=== PATIENT | female | born 1990 | race Two or more races ===

== ENCOUNTER 2024-02-11 19:53 | Observation (INO) | payer MEDICAID, SELFPAY ==
[2024-02-11 19:53] VITALS: BP 114/58; PULSE 57; RESP 18; RESP 98; TEMP 36.9
[2024-02-11 20:04] VITALS: BP 114/58; PULSE 57
[2024-02-11 20:12] VITALS: BMI 34.7
== END 2024-02-11 23:52 | disposition home or self-care (01) ==
PROVIDERS: Admitting Provider Specialist; Visit Provider Specialist
DX: Z3A.38 38 weeks gestation of pregnancy (principal); R10.2 Pelvic and perineal pain; M54.50 Low back pain, unspecified; R35.0 Frequency of micturition; O26.893 Other specified pregnancy related conditions, third trimester
CPT/HCPCS: 59025; 59899

== ENCOUNTER 2024-02-12 03:52 | Inpatient (IN) | payer MEDICAID, SELFPAY ==
[2024-02-12] VITALS (27 sets, daily range): BP systolic 100–122; BP diastolic 53–97; PULSE 50–73; RESP 16–98; TEMP 36.4–37.2; O2SAT 91–100; BMI 34.4
[2024-02-12 06:12] LABS: Basophils % (Auto) 0 % (0-2.5); Eosinophils % (Auto) 0 % (0-10); Hematocrit 42.2 % (36.0-46.0); Hemoglobin 14.1 g/dL (12.0-16.0); Immature Granulocytes % (Auto) 0 % (0-0); Immature Granulocytes Auto 0.04 Thou/mm3 (0.00-0.00); Lymphocytes # (Auto) 3.1 Thou/mm3 (1.0-4.8); Lymphocytes % (Auto) 30 % (10-50); Mean Corpuscular HGB Conc 33.4 g/dl (31.0-37.0); Mean Corpuscular Hemoglobin 26.6 pg (25.0-35.0); Mean Corpuscular Volume 80 fL (80-100); Monocytes # (Auto) 0.7 Thou/mm3 (0.0-0.8); Monocytes % (Auto) 7 % (0-12); Neutrophils # (Auto) 6.5 Thou/mm3 (1.8-7.7); Neutrophils % (Auto) 62 % (37-80); Nucleated Red Blood Cell % 0 /100 WBC (0); Platelet Count 180 Thou/mm3 (140-440); RDW Standard Deviation 43.2 fL (36.4-46.3); White Blood Count 10.5 Thou/mm3 (3.6-11.0)
[2024-02-12 06:55] LABS: Syphilis Nonreactive (Nonreactive)
--- NOTE | 2024-02-12 06:55 | PD.LDDS ---
DS: Providers Provider Date of admission: 02/12/24 05:40 Primary care physician: Physician No Primary/Family Admitting Provider: Stephon Barrett MD Attending Provider on Admission: Stephon Barrett MD Attending Provider on DC: Stephon Barrett MD Discharging Provider: Stephon Barrett MD DS: Diagnosis Problem List Completed Was Problem List Reviewed/Reconciled?: Yes Summary/Hosp Course Time Spent with Patient Time attestation: Total time spent providing and/or coordinating discharge services: Exam Vital Signs Temp Pulse Resp BP Pulse Ox 98 F 58 L 17 113/54 L 98 02/12/24 04:05 02/12/24 06:47 02/12/24 04:05 02/12/24 06:47 02/12/24 04:40 Discharge Plan Plan Patient Disposition: HOME (Self Care) Patient condition on transfer: Stable Prescriptions/Referrals Prescriptions/Med Rec: New ibuprofen 600 mg tablet 600 mg PO Q6H PRN (Reason: pain) Qty: 30 0RF Continued pawliggm-[id number]-[id number] 1 mg Tablet 1 tab PO DAILY Discontinued ferrous sulfate 325 mg (65 mg iron) tablet 325 mg PO QDAY Patient Comments: Take 1 tablet by mouth once a day Referrals: No Primary/Family,Physician [Primary Care Provider] - Patient/Caregiver Discharge Instructions Discharge Activity: activity as tolerated Other Discharge Activity Instructions:: Follow up office 6 weeks. Education Materials: After a Vaginal , Breast Care After , : Caring for Yourself Print Language: Bel[place]ian Stand Alone Forms: [facility] Award Info., Patient Portal Info Letter Discharge Order Discharge Orders: Discharge (Routine); Ordered 02/13/24 Ordered By: Stephon Barrett Planned Discharge Date 02/13/24
[2024-02-12] MEDS: OXYTOCIN in NS 20 units 20 UNIT/1,000 ML BAG 125 UNIT IV (06:59)
[2024-02-12] MEDS: RINGERS LACTATED 1000 ML 1,000 ML 100 ML IV (07:00)
--- NOTE | 2024-02-12 07:02 | PD.LDDELS ---
Data ([facility]) Data Hx Section: No : 3 Para: 2 Term: 2 : 0 : 0 Delivery Data ([place]) Labor Data ROM Date: 02/12/24 ROM Time: 06:29 Rupture Type: SROM Amniotic Fluid: Clear Delivery Data Labor Onset Stage 1 Date: 02/12/24 Labor Onset Stage 1 Time: 03:00 Labor Onset Stage 2 Date: 02/12/24 Labor Onset Stage 2 Time: 06:29 Delivery Date: 02/12/24 Delivery Time: 06:39 Placenta Delivery Date: 02/12/24 Placenta Delivery Time: 06:47 Delivered by: Stephon Barrett Delivery nurse: Maida Daugherty Other staff at delivery: Nurse Other staff at delivery: Nurse Other staff at delivery: Mai Melgar Other staff at delivery: Maddie Giron Delivery Method Delivery: Vaginal Delivery Type: Spontaneous Presentation: Vertex Anesthesia Type Primary Anesthesia: None Placenta Placenta Delivery: Spontaneous Cord Sample: Cord Blood Obtained Umbilical Cord Umbilical Vessels: 3 Data ([place]) Data Infant Gender: Male Infant Weight Grams: 3225 1 Minute Total: 9 5 Minute Total: 9
[2024-02-12] MEDS: BENZO/LANO/ALOE (Dermoplast) 60 GM CAN 1 SPRAY TOP (07:12)
[2024-02-12] MEDS: IBUPROFEN TAB 400 MG TABLET 800 MG PO ×2 (07:12→16:40)
--- NOTE | 2024-02-12 07:51 | ESHP_ITS ---
RE: ABBEY BRUNO : 1990 DATE OF ADMISSION: 02/12/2024 HISTORY OF PRESENT ILLNESS: This is a 33-year-old 3, para 2 with intrauterine at term weeks who presents for contractions and is noted to be in active labor. She progressed rapidly and delivered a viable male infant via normal vaginal delivery with intact perineum with Apgars 9 and 9, weight 3225 grams. , she reported contractions immediately prior to presenting to labor and delivery. She ruptured just prior to delivery. She reported no complications in the past few days. PAST MEDICAL HISTORY: Gallstones. PAST SURGICAL HISTORY: Cholecystitis. OBSTETRIC HISTORY: Two previous full-term normal vaginal deliveries. ALLERGIES: NO KNOWN DRUG ALLERGIES. MEDICATIONS: multivitamin 1 tablet p.o. daily. FAMILY HISTORY: See record. REVIEW OF SYSTEMS: She denies any chest pain, palpitations, cough, fever, or shortness of breath or lower extremity pain. PHYSICAL EXAMINATION: VITAL SIGNS: Blood pressure 113/54 mmHg, heart rate 58 bpm, respirations 18, temperature 98.2 degrees Fahrenheit. HEENT: Oropharynx and sclerae are clear. LUNGS: Clear to auscultation bilaterally. HEART: Regular rate and rhythm. ABDOMEN: Fundus is firm below the umbilicus. Bleeding is scant. PELVIC: Perineum is intact. EXTREMITIES: Nontender. SKIN: No gross rashes or lesions. NEUROLOGIC: No focal deficits. ASSESSMENT: day #0 status post spontaneous vaginal delivery. PLAN: care. support. Possible discharge home tomorrow. DT: 07:04:48 TT: 07:51:00 Ref: [id number] - TID: [id number] MTDD
[2024-02-12 14:11] LABS: Basophils % (Auto) 0 % (0-2.5); Eosinophils % (Auto) 0 % (0-10); Hematocrit 37.7 % (36.0-46.0); Hemoglobin 12.7 g/dL (12.0-16.0); Immature Granulocytes % (Auto) 0 % (0-0); Immature Granulocytes Auto 0.04 Thou/mm3 (0.00-0.00); Lymphocytes # (Auto) 1.7 Thou/mm3 (1.0-4.8); Lymphocytes % (Auto) 15 % (10-50); Mean Corpuscular HGB Conc 33.7 g/dl (31.0-37.0); Mean Corpuscular Hemoglobin 26.9 pg (25.0-35.0); Mean Corpuscular Volume 80 fL (80-100); Monocytes # (Auto) 0.7 Thou/mm3 (0.0-0.8); Monocytes % (Auto) 6 % (0-12); Neutrophils # (Auto) 9.4 Thou/mm3 (1.8-7.7); Neutrophils % (Auto) 79 % (37-80); Nucleated Red Blood Cell % 0 /100 WBC (0); Platelet Count 161 Thou/mm3 (140-440); RDW Standard Deviation 43.3 fL (36.4-46.3); Red Blood Count 4.72 Miln/mm3 (4.00-5.20); White Blood Count 11.8 Thou/mm3 (3.6-11.0)
[2024-02-13 00:05] VITALS: BP 107/64; PULSE 57; RESP 16; TEMP 36.9; O2SAT 98
[2024-02-13 05:19] VITALS: BP 108/65; PULSE 52; RESP 16; TEMP 36.6; O2SAT 98
[2024-02-13 07:48] VITALS: BP 102/67; PULSE 94; RESP 16; TEMP 36.6; O2SAT 98
--- NOTE | 2024-02-13 08:15 | ESPR_ITS ---
RE: KEKEGEOVANYABBEY : 1990 DATE OF SERVICE: 02/13/2024 SUBJECTIVE: day #1, the patient denies any problems or complaints. OBJECTIVE: Vital Signs: Blood pressure 108/65, heart rate 52, respirations 16, temperature is 97.8, pulse oximetry is 98% on room air. Lungs: Clear to auscultation bilaterally. Heart: Regular rate and rhythm. Abdomen: Fundus is firm. Extremities: Nontender. LABORATORY DATA: Hemoglobin pre-delivery is 14.1, post delivery is 12.7. ASSESSMENT: day #1, status post spontaneous vaginal delivery. PLAN: Discharge home. Discharge instructions were given. Follow up in the office in 6 weeks. DT: 07:03:33 TT: 08:10:00 Ref: [id number] - TID: [id number] MTDD
[2024-02-13] MEDS: bisacodyL 5 MG TABEC 10 MG PO (10:23)
--- NOTE | 2024-02-13 10:26 | PC.NURSE ---
Verified administration of Dulcolax with Nida Student BLOCK SAWYER, present through entire process
[2024-02-13 14:30] VITALS: BMI 34.4
== END 2024-02-13 15:07 | disposition home or self-care (01) | DRG 560 ==
LOC: S4SX 06:50 → S4NX 08:52
PROVIDERS: Admitting Provider Specialist; Visit Provider Specialist
DX: O80 Encounter for full-term uncomplicated delivery (principal); Z37.0 Single live birth; Z3A.38 38 weeks gestation of pregnancy
CPT/HCPCS: 36415; 85025; 86780; 86850; 86900; 86901; J2590; J7120; A9270